=== PATIENT | male | born 1945 | race Caucasian/White ===

== ENCOUNTER 2024-11-13 09:28 | Outpatient (CLI) | payer MEDICARE ==
[2024-11-13 09:57] LABS: BASOPHILS % (AUTO) 0.8 % (0-1); EOSINOPHILS # (AUTO) 0.1 X10'3 (0-0.9); EOSINOPHILS % (AUTO) 1.4 % (0-6); HEMATOCRIT 24.9 % (42.0-52.0); HEMOGLOBIN 7.5 g/dl (14.0-17.9); LYMPHOCYTES # (AUTO) 0.5 X10'3 (1.1-4.8); LYMPHOCYTES % (AUTO) 9.1 % (21-51); MEAN CORPUSCULAR HEMOGLOBIN 21.5 PG (27.0-31.0); MEAN CORPUSCULAR HGB CONC 30.2 g/dL (33.0-36.5); MEAN CORPUSCULAR VOLUME 71.2 FL (78-98); MEAN PLATELET VOLUME 7.8 FL (7.4-10.4); MONOCYTES # (AUTO) 0.6 X10'3 (0-0.9); MONOCYTES % (AUTO) 9.5 % (2-12); NEUTROPHILS # (AUTO) 4.6 X10'3 (1.8-7.7); NEUTROPHILS % (AUTO) 79.2 % (42-75); PLATELET COUNT 261 X10'3 (140-440); RED CELL DISTRIBUTION WIDTH 21.3 % (11.5-14.5); WHITE BLOOD COUNT 5.8 X10'3 (4.5-11.0)
[2024-11-13 10:18] LABS: ALBUMIN 3.5 G/DL (3.4-5.0); ANION GAP 5 (8-16); BLOOD UREA NITROGEN 25 MG/DL (7-18); BUN/CREATININE RATIO 26.6 (10.0-20.0); CALCIUM 8.6 MG/DL (8.5-10.1); CHLORIDE 106 MMOL/L (99-107); CHOL/HDL RATIO 1.8 (0.00-4.99); CHOLESTEROL 105 MG/DL (0-200); CREATININE 0.94 MG/DL (0.60-1.10); GLUCOSE 125 MG/DL (70-104); HDL CHOLESTEROL 57 MG/DL (35-60); LDL CHOLESTEROL 39 MG/DL (50-100); SODIUM 142 MMOL/L (135-145); TOTAL CARBON DIOXIDE 30.7 MMOL/L (24-32); TRIGLYCERIDES 38 MG/DL (20-135); eGFR 77 ML/MIN
[2024-11-13 10:25] LABS: APTT 28 SECONDS (22-32); INR 1.1 INR; PROTHROMBIN TIME 11.5 SECONDS (9.0-12.0)
[2024-11-13 10:26] LABS: PLATELET ESTIMATE NORMAL
[2024-11-13 10:27] LABS: ANISOCYTOSIS 3+; ELLIPTOCYTES FEW; HYPOCHROMASIA 1+; MICROCYTOSIS 1+; POLYCHROMASIA 1+; TEAR DROP CELLS FEW
== END 2024-11-13 23:59 | disposition home or self-care (01) ==
LOC: LAB 09:28 → EDSTATUS 11-17 14:00
PROVIDERS: ATTEND Student in an Organized Health Care Education/Training Program
DX: I48.91 Unspecified atrial fibrillation (principal); E78.5 Hyperlipidemia, unspecified; I10 Essential (primary) hypertension
CPT/HCPCS: 36415; 80048; 80061; 85008; 85025; 85610; 85730

== ENCOUNTER 2025-01-07 09:14 | Day surgery (SDC) | payer MEDICARE ==
[~2025-01-07] VITALS: Ht 177.8 cm; Wt 192.0 kg
[2025-01-07] VITALS (7 sets, daily range): BP systolic 89–146; BP diastolic 51–100; PULSE 61–79; RESP 12–17; TEMP 98.5; O2SAT 62–98
[~2025-01-07 09:14] MED LIST: AMIO100T4 PO; APIX5TAB3 PO; ATOR10TA70 PO; FERR159T3 PO; FURO40TA4 PO; LOSA50TA64 PO; POTA-206 PO; vitamin b12 PO
[2025-01-07] MEDS ORDERED: propofol inj 20 ML IV ONE ×2 (11:38)
[2025-01-07] MEDS ORDERED: simethicone 40mg/0.6ml oral drops 30ml ONE (11:40)
== END 2025-01-07 13:15 | disposition home or self-care (01) ==
LOC: GI LAB 09:14
PROVIDERS: ATTEND Internal Medicine Gastroenterology
DX: D50.0 Iron deficiency anemia secondary to blood loss (chronic) (principal); D12.0 Benign neoplasm of cecum; C18.0 Malignant neoplasm of cecum; I48.91 Unspecified atrial fibrillation; K29.50 Unspecified chronic gastritis without bleeding; K57.30 Diverticulosis of large intestine without perforation or abscess without bleeding; Z87.442 Personal history of urinary calculi
CPT/HCPCS: 43239; 45380; 45385; 88305; 88341; 88342; A4620; J2704; J7030; Z7512